=== PATIENT | male | born 1955 | race Caucasian/White ===

== ENCOUNTER 2025-04-06 13:24 | Outpatient (CLI) | payer OTHER, SELFPAY ==
--- OUTSIDE RECORDS SUMMARY | 2025-03-29 08:10 | XMS_ITS | Encounter Summary ---
Author Organization [place] [address] Care Team Providers Care Supervisor Feed Mill Name Role Phone Omar Perez MD Primary Care Provider [phone] Reason for Visit * Reason Comments Hypertension Hyperlipidemia Encounter Details Date Type Department Care Team (Latest Contact Info) Description 03/29/2025 8:10 AM EDT Office Visit [facility] [address] [place] [address] [place] [id number] [place] [address] Hypertension, benign (Primary Dx); Hyperlipidemia, [...] 03/29/2025 cyclobenzaprine (FLEXERIL) 10 mg Oral TabletIndications:Ac koi low back pain without sciatica, unspecified back [...] AM EST Office Visit [facility] [address] [place] [phone] [place] [address] [place] [phone] documented as [...] documented as of this encounter Care Teams Supervisor Feed Mill Relationship Specialty [place] [address] [place] [phone] PCP - General Internal Medicine 07/12/11 documented as of this encounter
--- NOTE | 2025-04-06 13:29 | XR_ITS ---
FINAL REPORT TECHNIQUE: Chest PA & Lateral CLINICAL HISTORY: BNP, SOA COMPARISON: None FINDINGS: 2 views of the chest were performed. The heart size is normal. The mediastinum is within normal limits. There is no acute cardiopulmonary process. There are no pleural effusions. There is no pneumothorax. The bony thorax appears intact. IMPRESSION: No acute cardiopulmonary process. Reviewed, Interpreted and Dictated by Syd Chong MD Transcribed by Pily Sanchez Authenticated and [facility]
[2025-04-06 13:40] LABS: Hematocrit 46.1 % (42.0-52.0); Hemoglobin 15.3 g/dL (14.1-18.0); Immature Granulocytes % 0.3 %; Mean Corpuscular HGB Conc 33.2 g/dL (31.8-35.4); Mean Corpuscular Hemoglobin 30.1 pg (27.0-31.2); Mean Corpuscular Volume 90.7 fl (80-94); Nucleated Red Blood Cells % 0 %; Platelet Count 286 K/mm3 (142-424); Red Blood Count 5.08 M/mm3 (4.60-6.20); Red Cell Distribution Width-SD 44.4 fL; White Blood Count 9.7 K/mm3 (4.8-10.8)
--- OUTSIDE RECORDS SUMMARY | 2025-04-06 13:42 | XMS_ITS | Clinical Summary ---
Author Organization [employer] [facility] Address [address] [place] [address] Phone Care Team Providers Care Senior Physical Therapist Name Role Phone Unavailable Unavailable Conditions or Problems No information available. Medications No information available. Medications Administered No information available. Allergies, Adverse Reactions, Alerts No information available. Results No information available. Plan of Care No information available. Procedures No information available. Vital Signs No information available. Immunizations No information available. Advance Directives No information available.
--- OUTSIDE RECORDS SUMMARY | 2025-04-06 13:43 | XMS_ITS | Clinical Summary ---
Author Organization [facility] ter Care Team Providers Care Pigment Pumper Name Role Phone Provider, Imaging Unavailable Unavailable Conditions or Problems No information available. Medications No information available. Medications Administered No information available. Allergies, Adverse Reactions, Alerts No information available. Results No information available. Plan of Care No information available. Procedures No information available. Vital Signs No information available. Immunizations No information available. Advance Directives No information available.
--- OUTSIDE RECORDS SUMMARY | 2025-04-06 13:44 | XMS_ITS | Clinical Summary ---
Author Organization [facility] Address [address] [place] [address] Phone Care Team Providers Care Manufacturing Operations Manager Name Role Phone Omar Perez MD Primary Care Provider [phone] Allergies No known active allergies Medications omeprazole (PRILOSEC) 20 mg Oral Capsule, Delayed Release(E.C.) 7 Active gabapentin (NEURONTIN) 300 mg Oral Capsule 4 Active lidocaine (XYLOCAINE) 5 % Top OintmentIndication s:Primary osteoarthritis of both knees Apply topically daily. 60 g 2 5 Active atorvastatin (LIPITOR) 80 mg Oral TabletIndications: Hyperlipidemia, unspecified hyperlipidemia type Take 1 Tablet by mouth daily. 90 Tablet 1 5 Active cyclobenzaprine (FLEXERIL) 10 mg Oral TabletIndications: Acute low back pain without sciatica, unspecified back pain laterality Take 1 Tablet by mouth 3 times daily as needed. 60 Tablet 5 5 Active diclofenac (VOLTAREN) 75 mg Oral Tablet, Delayed Release (E.C.)Indications: Osteoarthritis of right knee, unspecified osteoarthritis type Take 1 Tablet by mouth 2 times daily (with meals). 180 Tablet 1 5 Active lisinopriL-hydroch lorothiazide (PRINZIDE;ZESTORET IC) 20-12.5 mg Oral TabletIndications: Hypertension, benign Take 1 Tablet by mouth 2 times daily. 180 Tablet 1 5 Active Active Problems Patient Care Coordination No te Formatting of this note migh t be different from the original. Care gap audit completed by Bre Cuenca RN on 02/01/2024. Problem Noted Date Diagnosed Date Osteoarthritis of right knee 05/21/2022 Assessment & Plan (05/25/2024 3:31 PM EDT): Orders: [place] ARTHROCENTESIS ASPIR&/INJ MAJOR JT/BURSA W/O US methylPREDNISolone acetate (DEPO-Medrol) injection 80 mg diclofenac (VOLTAREN) 75 mg Oral Tablet, Delayed Release (E.C.); Take 1 Tablet by mouth 2 times daily (with meals). Chronic pain disorder 04/09/2020 Meralgia paresthetica 04/09/2020 Displacement of lumbar inter vertebral disc without myelopathy 04/09/2020 Hypertensive heart disease without congestive he art failure 04/09/2020 Spinal stenosis of lumbar region 04/09/2020 Osteoarthritis of left knee 04/09/2020 Tachycardia 04/09/2020 Primary osteoarthritis of both knees 04/19/2019 CKD (chronic kidney disease) stage 3, GFR 30-59 ml/min 11/05/2018 Hyperlipidemia 04/02/2016 Morbid obesity with BMI of 45.0-49.9, adult 01/2015 Hypertension, benign 06/22/2015 Encounters Date Type Department Care Team Description 03/29/2025 8:10 AM EDT Office Visit [facility] POLANCO [address] [address] Omar Perez MD Hypertension, benign (Primary Dx); Hyperlipidemia, unspecified hyperlipidemia type; Acute low back pain without sciatica, unspecified back pain laterality; Osteoarthritis of right knee, unspecified osteoarthritis type 01/25/2025 8:40 AM EDT Office Visit [facility] POLANCO [address] [address] Omar Perez MD Primary osteoarthritis of right knee (Primary Dx); Trochanteric bursitis of right hip; Acute bronchitis, unspecified organism from Last 3 Months Surgical History Surgery Date Site/Laterality Comments ROTATOR CUFF REPAIR TONGUE SURGERY KNEE ARTHROSCOPY left SHOULDER SURGERY Right rotator cuff repair KNEE SURGERY Left scoped TOTAL KNEE ARTHROPLASTY 04/09/2020 Knee/Left LEFT TOTAL KNEE ARTHROPLASTY; Surgeon: Gene Thompson MD; Location: [facility]; Service: Orthopedics Medical devices from this surgery are in the Medical Devices section. Medical History Medical History Date Comments Chronic back pain L 4,L5 Calcaneus fracture, right Hypertension Hyperlipidemia Arthritis Throat cancer (HCC) 1987 Family History Medical History Relation Name Comments Alcohol Abuse Father Substance Abuse Father Cancer Mother Arthritis Sister Anesth Problems Neg Hx Relation Name Status Comments Father Mother Alive Sister Alive Social History Tobacco Use Types Packs/Day Years [...] on file Sexual Orientation Not on file Obstetrics History Last Filed Vital Signs Vital Sign Reading Time Taken Comments Blood Pressure 130/70 03/29/2025 8:16 AM EDT Pulse 75 03/29/2025 8:16 AM EDT Temperature 36.7 C (98.1 F) 03/29/2025 8:16 AM EDT Respiratory Rate 16 09/01/2021 1:13 PM EST Oxygen Saturation 94% 03/29/2025 8:16 AM EDT Inhaled Oxygen Concentration - - Weight 154.2 kg (340 lb) 03/29/2025 8:16 AM EDT Height 177.8 cm (5' 10 ) 01/25/2025 8:51 AM EDT Body Mass Index 48.78 01/25/2025 8:51 AM EDT Plan of Treatment Upcoming Encounters Date Type Department Care Team (Late st Contact Info) Description 09/29/2025 8:00 AM EST Office Visit [facility]ANCO [address] [address] [place] [address] [place] [address] Health Maintenance Due Date Last Done Comments DTaP/TDaP/Td (1 - Tdap) 12/01/1975 Colonoscopy 2001 FIT 2001 Sigmoidoscopy 2001 Virtual Colonography 2001 Pneumococcal Vaccine 50+ (1 of 1 - PCV) 2006 Zoster (1 of 2) 2006 RSV or 60+ (1 - Risk 60-74 years 1-dose series) 2016 AAA Screening 2021 COVID-19 Vaccine (1 - season) 2024 Influenza Vaccine (#1) 2025 8 (Declined), 10/01/2016 (Declined), 06/22/2015 (Declined) Wellness Exam Medicare 09/30/2025 09/29/2024 Cologuard 11/05/2027 11/04/2024, 10/16, 01/23/2021, Additional history exists Colon Cancer Screening 11/05/2027 Hepatitis C Screening Completed 11/02/2017 Hepatitis B Vaccine Aged Out No longe r eligible based on patient's age to complete this topic Meningococcal B Vaccine Aged Out No l onger eligible based on patient's age to complete this topic Goals Goal Patient Goal Type Associated Problems Recent Progress Patient-Stated? Author Blood Pressure < 140/90 Blood Pressure 130/70(2024 8:16 AM EDT) No Amarilys Castaneda CCMA Maintain a healthy diet, exercise regularly and maintain an ideal body weight General No Bre Apodaca RMA Stay Tobacco Free Lifestyle No Bre Apodaca RMA Medical Devices Implanted Type Area Fruit Ii Farmworker Device Identifier Shelf Expiration Date Model / Serial / Lot Femur Tm Cr Persona Standard Porous Left Size 11 - [id number] Implanted:Qty : 1 on 04/09/2020 by Gene Thompson MD at [facility] Left: Knee JESUS:JESUS [id number] 10/14/2029 [id number] / / [id number] Cmpnt Ptlr 10mm 41mm Prm Nxgn Trb Mtl Pe Por Kn - [id number] Implanted:Qty : 1 on 04/09/2020 by Gene Thompson MD at [facility] Left: Knee JESUS:JESUS [id number] 06/16/2024 [id number] / / [id number] Plate Tib Grn [id number] Nxgn 6 C-H Kn Trb Mtl Pe Cr Mnblck - [id number] Implanted:Qty : 1 on 04/09/2020 by Gene Thompson MD at [facility] Left: Knee JESUS:JESUS [id number] 2 06/16/2022 [id number] / / [id number] Procedures Procedure Name Priority Date/Time Associated Diagnosis Comments COLOGUARD Routine 11/04/2024 8:00 AM EDT Screening for colon cancer HCV ANTIBODY SCREEN W/ REFLEX Routine 11/02/2017 9:27 AM EDT Need for hepatitis C screening test from Last 3 Months or Most Recently Relevant to Health Maintenance Results * COLOGUARD (11/04/2024 8:00 AM EDT) COLOGUARD CLINICAL REPORT Negative Negative [facility] Comment: NEGATIVE TEST RESULT. A negative Cologuard result indicates a low likelihood that a colorectal cancer (CRC) or advanced adenoma (adenomatous polyps with more advanced pre-malignant features) is present. The chance that a person with a negative Cologuard test has a colorectal cancer is less than 1 in 1500 (negative predictive value >99.9%) or has an advanced adenoma is less than 5.3% (negative predictive value 94.7%). These data are based on a prospective cross-sectional study of 10,000 individuals at average risk for colorectal cancer who were screened with both Cologuard and colonoscopy. (Augie Wilson al, N Engl J Med 2014;370(14):3774-8689) The normal value (reference range) for this assay is negative. COLOGUARD RE-SCREENING RECOMMENDATION: Periodic colorectal cancer screening is an important part of preventive healthcare for asymptomatic individuals at average risk for colorectal cancer. Following a negative Cologuard result, the [place] Cancer Society and U.S. Multi-Society Task Force screening guidelines recommend a Cologuard re-screening interval of 3 years. References: [place] Cancer Society Guideline for Colorectal Cancer Screening: https://www.cancer.org/cancer/nxplv-bbmpsf-amedap/gnonxbheu-ghhukqdbz-elgjcid/ac s-rec ommendations.html.; Sebastian THORNE, Foster BARRY, Landon MCKEON, Colorectal Cancer Screening: Recommendations for Physicians and Patients from the U.S. Multi-Society Task Force on Colorectal Cancer Screening , Am J Gastroenterology 2017; 112:3986-7266. TEST DESCRIPTION: Composite algorithmic analysis of stool DNA-biomarkers with hemoglobin immunoassay. Quantitative values of individual biomarkers are not reportable and are not associated with individual biomarker result reference ranges. Cologuard is intended for colorectal cancer screening of adults of either sex, 45 years or older, who are at average-risk for colorectal cancer (CRC). Cologuard has been approved for use by the U.S. FDA. The performance of Cologuard was established in a cross sectional study of average-risk adults aged 50-84. Cologuard performance in patients ages 45 to 49 years was estimated by sub-group analysis of near-age groups. Colonoscopies performed for a positive result may find as the most clinically significant lesion: colorectal cancer [4.0%], advanced adenoma (including sessile serrated polyps greater than or equal to 1cm diameter) [20%] or non- advanced adenoma [31%]; or no colorectal neoplasia [45%]. These estimates are derived from a prospective cross-sectional screening study of 10,000 individuals at average risk for colorectal cancer who were screened with both Cologuard and colonoscopy. (Augie Zaragoza et al, N Engl J Med 2014;370(14):1829-8245.) Cologuard may produce a false negative or false positive result (no colorectal cancer or precancerous polyp present at colonoscopy follow up). A negative Cologuard test result does not guarantee the absence of CRC or advanced adenoma (pre-cancer). The current Cologuard screening interval is every 3 years. ([place] Cancer Society and U.S. Multi-Society Task Force). Cologuard performance data in a 10,000 patient pivotal study using colonoscopy as the reference method can be accessed at the following location: www.[employer] Dynamics/results. Additional description of the Cologuard test process, warnings and precautions can be found at www.cologuard.com. Stool 11/04/2024 8:00 AM EDT 11/06/2024 10:22 PM EDT us Omar Perez MD EXACT SCIENCE - ORDERABLES Fi nal Result [employer], [place] [address], [facility] [employer] [address] [place] [address] * HEPATITIS C ANTIBODY - SCREENING (11/02/2017 9:27 AM EDT) [facility] Signature Hep C Ab Negative Negative 11/02/2017 3:46 PM EDT [facility] Blood VENOUS BLOOD / Unknown Venipuncture / Unknown 11/02/2017 9:27 AM EDT 11/02/2017 9:27 AM EDT us Omar Perez MD HEMATOLOGY ORDERABLES Final R esult [facility] [address] [place] [address] from Last 3 Months or Most Recently Relevant to Health [place] [address] Advance Directives For more information, please contact: [phone] * Full Code (Latest Code Status on File) Date Activated Date Inactivated Comments 04/09/2020 7:47 PM 04/10/2020 6:58 PM Care Teams Manufacturing Operations Manager Relationship Specialty [place] [address] [place] [address] PCP - General Internal Medicine 07/12/11
--- OUTSIDE RECORDS SUMMARY | 2025-04-06 13:44 | XMS_ITS | Clinical Summary ---
Author Organization [facility] Address [address] [place] [address] Care Team Providers Care Curtain Supervisor Name Role Phone Luci Chowdhury MD Primary Care Provider Unavailabl e Source Comments This information has been disclosed to you from confidential records protectedfrom disclosure by state law. You shall make no further disclosure of thisinformation without the specific, written, and informed release of theindividual to whom it pertains, or as otherwise permitted by law. A generalauthorization for the release of medical or other information is not sufficientfor the purposes of therelease of HIV test results or diagnoses. [id number] Allergies No known active allergies Medications No known medications Active Problems No known active problems Family History Medical History Relation Comments Cancer Other Relation Status Comments Other Alive Social History Tobacco Use Types Packs/Day Years Used Date Smoking Tobacco: Former Cigarettes Q uit: 06/28/1988 Smokeless Tobacco: Never Alcohol Use Standard Drinks/Week Comments Yes 0 (1 standard drink = 0.6 oz pur e alcohol) 6 bottles per week Sex and Gender Information Value Date Recorded Sex Assigned at Not on file Legal Sex Male 7:24 PM EST Gender Identity Not on file Sexual Orientation Not on file Last Filed Vital Signs Vital Sign Reading Time Taken Comments Blood Pressure 123/74 07/22/2012 11:30 AM EST Pulse 86 07/22/2012 11:30 AM EST Temperature 36.2 C (97.2 F) 07/02/2012 12:43 PM EST Respiratory Rate 14 07/02/2012 1:28 PM EST Oxygen Saturation 98% 07/02/2012 1:28 PM EST Inhaled Oxygen Concentration 98% 07/02/2012 1 :28 PM EST Weight 133.8 kg (295 lb) 07/22/2012 11:30 AM EST Height 185.4 cm (6' 0.99 ) 07/22/2012 11:[address] Body Mass Index 38.93 07/22/2012 11:30 AM EST Plan of Treatment Not on file Insurance [employer] Advance Directives For more information, please contact: [phone] * Full Code (Latest Code Status on File) Date Activated Date Inactivated Comments 07/02/2012 11:53 AM 07/02/2012 3:48 PM Care Teams Curtain Supervisor Relationship Specialty Start Date End Date Luci Chowdhury MD PCP - General 03/26/12
[2025-04-06 13:56] LABS: Hemoglobin A1C 6.5 % (4.0-6.0)
[2025-04-06 14:21] LABS: Alanine Aminotransferase 26 U/L (12-78); Albumin Level 4.4 g/dl (3.5-5.0); Albumin/Globulin Ratio 1.2 (1.1-1.8); Alkaline Phosphatase 108 U/L (38-126); Anion Gap 14.6 mEq/L (5-15); Aspartate Amino Transferase 38 U/L (17-59); Bilirubin,Direct 0.2 mg/dl (0.0-0.4); Bilirubin,Indirect 0.4 mg/dL (0.0-0.9); Bilirubin,Total 0.6 mg/dl (0.2-1.3); Bilirubin,Unconjugated 0.4 mg/dL (0.0-1.1); Blood Urea Nitrogen 16 mg/dl (9-20); Calcium 9.5 mg/dl (8.4-10.2); Carbon Dioxide 28 mmol/L (22.0-30.0); Chloride 102 mmol/L (98-107); Cholesterol 217 mg/dl (140-200); Creatinine,Serum 1.10 mg/dl (0.66-1.25); Estimated Glomerular Filt Rate 67 ml/min (>60); GFR (African American) 81 ML/MIN (>60); Globulin 3.7 g/dL (1.3-3.2); Glucose 84 mg/dl (74-100); HDL Cholesterol 45 mg/dl (40-60); Magnesium 2.2 mg/dl (1.6-2.3); Potassium 4.6 mmoL/L (3.5-5.1); Sodium 140 mmol/L (136-145); Total Protein,Serum 8.1 g/dl (6.3-8.2); Triglycerides 199 mg/dl (30-150)
[2025-04-06 14:32] LABS: NT Pro Brain Natriuretic Pep. 172 pg/mL (0-125)
[2025-04-06 14:38] LABS: Free T4 (Free Thyroxine) 1.22 ng/dl (0.78-2.19)
[2025-04-06 14:53] LABS: Thyroid Stimulating Hormone 1.58 uIU/mL (0.465-4.68)
== END 2025-04-06 23:59 | disposition home or self-care (01) ==
LOC: LAB 13:26
PROVIDERS: Visit Provider Internal Medicine
DX: E66.01 Morbid (severe) obesity due to excess calories (principal); R06.02 Shortness of breath; R73.03 Prediabetes; R60.9 Edema, unspecified; R94.31 Abnormal electrocardiogram [ECG] [EKG]
CPT/HCPCS: 36415; 71046; 80053; 80061; 82248; 83036; 83735; 83880; 84439; 84443; 85025

== ENCOUNTER 2025-04-20 10:54 | Outpatient (CLI) | payer MEDICARE, SELFPAY ==
--- OUTSIDE RECORDS SUMMARY | 2025-03-29 08:10 | XMS_ITS | Encounter Summary ---
Author Organization [place] [address] Care Team Providers Care Asbestos Brake Lining Finisher Name Role Phone Omar Perez MD Primary Care Provider [phone] Reason for Visit * Reason Comments Hypertension Hyperlipidemia Encounter Details Date Type Department Care Team (Latest Contact Info) Description 03/29/2025 8:10 AM EDT Office Visit [facility] [address] [place] [address] [place] [id number] [place] [address] Hypertension, benign (Primary Dx); Hyperlipidemia, unspecified hyperlipidemia type; Acute low back pain without sciatica, unspecified back pain laterality; Osteoarthritis of right knee, unspecified osteoarthritis type Social History Tobacco Use Types Packs/Day Years Used Date Smoking Tobacco: Former Cigarettes 3 8.6 0 03/28/1979 - 11/16/1987 Smokeless Tobacco: Never Tobacco Cessation:Counseling Given: Not Answered Alcohol Use Standard Drinks/Week Comments Yes 8 (1 standard drink = 0.6 oz pur e alcohol) PHQ-2 Answer Date Recorded PHQ-2 Total Score 0 09/29/2024 Sexually Active Control Partners Comments Not Currently Sex and Gender Information Value Date Recorded Sex Assigned at Not on file Legal Sex Male 11:55 PM EDT Gender Identity Not on file Sexual Orientation Not on file documented as of this encounter Last Filed Vital Signs Vital Sign Reading Time Taken Comments Blood Pressure 130/70 03/29/2025 8:16 AM EDT Pulse 75 03/29/2025 8:16 AM EDT Temperature 36.7 C (98.1 F) 03/29/2025 8:16 AM EDT Respiratory Rate - - Oxygen Saturation 94% 03/29/2025 8:16 AM EDT Inhaled Oxygen Concentration - - Weight 154.2 kg (340 lb) 03/29/2025 8:16 AM EDT Height - - Body Mass Index 48.78 01/25/2025 8:51 AM EDT documented in this encounter Functional Status * Is the person deaf or does he/she have serious difficulty hearing? Answer Date of Assessment Author No 09/29/2024 8:39 AM Nazanin Araya CCMA * Is the person blind or does he/she have serious difficulty seeing even when wearing glasses? Answer Date of Assessment Author No 09/29/2024 8:39 AM Nazanin Araya CCMA * Does this person have serious difficulty walking or climbing stairs? Answer Date of Assessment Author No 09/29/2024 8:39 AM Nazanin Araya CCMA * Does this person have difficulty dressing or bathing? Answer Date of Assessment Author No 09/29/2024 8:39 AM Nazanin Araya CCMA * Because of a physical, mental or emotional condition, does this person have difficulty doing errands alone such as visiting a doctor's office or shopping? Answer Date of Assessment Author No 09/29/2024 8:39 AM Nazanin Araya CCMA documented as of this encounter Mental Status * Because of a physical, mental or emotional condition, does this person have serious difficulty concentrating, remembering or making decisions? Answer Entry Date Author No 09/29/2024 8:39 AM Nazanin Araya CCMA documented in this encounter Ordered Prescriptions Prescription Sig Dispense Quantity Refills Last Filled Start Date End Date lisinopriL-hydrochlo rothiazide (PRINZIDE;ZESTORETIC ) 20-12.5 mg Oral TabletIndications:Hy pertension, benign Take 1 Tablet by mouth 2 times daily. 180 Tablet 1 03/29/2025 diclofenac (VOLTAREN) 75 mg Oral Tablet, Delayed Release (E.C.)Indications:Os teoarthritis of right knee, unspecified osteoarthritis type Take 1 Tablet by mouth 2 times daily (with meals). 180 Tablet 1 03/29/2025 cyclobenzaprine (FLEXERIL) 10 mg Oral TabletIndications:Ac walk[place] river low back pain without sciatica, unspecified back pain laterality Take 1 Tablet by mouth 3 times daily as needed. 60 Tablet 5 03/29/2025 atorvastatin (LIPITOR) 80 mg Oral TabletIndications:Hy perlipidemia, unspecified hyperlipidemia type Take 1 Tablet by mouth daily. 90 Tablet 1 03/29/2025 documented in this encounter Progress Notes * Omar Perez MD - 03/29/2025 8:10 AM EDT Vitals: 03/29/25 0816 BP: 130/70 BP Location: Left arm Pulse: 75 Temp: 98.1 ??F (36.7 ??C) TempSrc: Temporal SpO2: 94% Weight: (!) 340 lb (154.2 kg) Body mass index is 48.78 kg/m??. SUBJECTIVE: Chief Complaint Patient presents with ??? Hypertension ??? Hyperlipidemia HPI: Pt is having trouble breathing. Hypertension: Home reporting of hypertension was reviewed at time of visit. Gustavo denies any episodes of dizziness, lightheadedness, presyncope, syncope, headache, or chest pain. Gustavo does not report any new symptoms of possible hypertension sequelae. The patient reports that he is not having significant issuesor side effects of current medications/treatments. Hyperlipidemia: Last Lipid and liver panel has been reviewed. Current cholesterol goals discussed with patient. Thepatient is on a lipid lowering agent. The patient currently is on a statin. No complaints of side effects from medication. The patient is not having issues maintaining compliance with the previously outlined care plan. The patient does not report significant side effects of current medications/treatments. Diet has been reviewed with patient. Review of Systems Constitutional: Negative for chills and fever. HENT: Negative for congestion, rhinorrhea, sore throat and trouble swallowing. Eyes: Negative for discharge and redness. Respiratory: Negative for cough and shortness of breath. Cardiovascular: Negative for chest pain. Gastrointestinal: Negative for constipation, diarrhea, nausea and vomiting. Genitourinary: Negative for difficulty urinating and dysuria. Musculoskeletal: Negative for back pain. Skin: Negative for rash. Neurological: Negative for headaches. Hematological: Does not bruise/bleed easily. Psychiatric/Behavioral: Negative for confusion. OBJECTIVE: Physical Exam Vitals and nursing note reviewed. Constitutional: General: He is not in acute distress. Appearance: He is well-developed. He is not diaphoretic. HENT: Head: Normocephalic and atraumatic. Right Ear: Tympanic membrane, ear canal and external ear normal. Left Ear: Tympanic membrane, ear canal and external ear normal. Nose: Nose normal. Mouth/Throat: Mouth: Mucous membranes are moist. Eyes: Extraocular Movements: Extraocular movements intact. Conjunctiva/sclera: Conjunctivae normal. Pupils: Pupils are equal, round, and reactive to light. Cardiovascular: Rate and Rhythm: Normal rate and regular rhythm. Heart sounds: No murmur heard. Pulmonary: Effort: Pulmonary effort is normal. No respiratory distress. Breath sounds: Normal breath sounds. No wheezing, rhonchi or rales. Musculoskeletal: General: No swelling. Cervical back: Neck supple. Skin: General: Skin is warm and dry. Findings: No rash. Neurological: Mental Status: He is alert and oriented to person, place, and time. Psychiatric: Mood and Affect: Mood normal. Behavior: Behavior normal. Assessment Diagnoses and all orders for this visit: Hypertension, benign - lisinopriL-hydrochlorothiazide (PRINZIDE;ZESTORETIC) 20-12.5 mg Oral Tablet; Take 1 Tablet by mouth 2 times daily. Dispense: 180 Tablet; Refill: 1 Hyperlipidemia, unspecified hyperlipidemia type - atorvastatin (LIPITOR) 80 mg Oral Tablet; Take 1 Tablet by mouth daily. Dispense: 90 Tablet; Refill: 1 Acute low back pain without sciatica, unspecified back pain laterality - cyclobenzaprine (FLEXERIL) 10 mg Oral Tablet; Take 1 Tablet by mouth 3 times daily as needed. Dispense: 60 Tablet; Refill: 5 Osteoarthritis of right knee, unspecified osteoarthritis type - diclofenac (VOLTAREN) 75 mg Oral Tablet, Delayed Release (E.C.); Take 1 Tablet by mouth 2 times daily (with meals). Dispense: 180 Tablet; Refill: 1 documented in this encounter Plan of Treatment Upcoming Encounters Date Type Department Care Team (Abdirizak Contact Info) Description 09/29/2025 8:00 AM EST Office Visit [facility] [address] [place] [phone] [place] [id number] [place] [phone] documented as of this encounter Goals Goal Patient Goal Type Associated Problems Recent Progress Patient-Stated? Author Blood Pressure < 140/90 Blood Pressure 130/70(2024 8:16 AM EDT) Amarilys Staley CCMA Maintain a healthy diet, exercise regularly and maintain an ideal body weight General No Bre Apodaca RMA Stay Tobacco Free Lifestyle No Bre Apodaca RMA documented as of this encounter Visit Diagnoses Diagnosis Hypertension, benign- Primary Essential hypertension, benign Hyperlipidemia, unspecified hyperlipidemia type Acute low back pain without sciatica, unspecified back pain laterality Osteoarthritis of right knee, unspecified osteoarthritis type documented in this encounter Discontinued Medications Medication Sig Discontinue Reason Start Date End Da te cyclobenzaprine (FLEXERIL) 10 mg Oral TabletIndications:Acute low back pain without sciatica, unspecified back pain laterality Take 1 Tablet by mouth 3 times daily as needed. Reorder 09/29/2024 03/29/2025 diclofenac (VOLTAREN) 75 mg Oral Tablet, Delayed Release (E.C.)Indications:Osteoart hritis of right knee, unspecified osteoarthritis type Take 1 Tablet by mouth 2 times daily (with meals). Reorder 09/29/2024 03/29/2025 lisinopriL-hydrochlorothia zide (PRINZIDE;ZESTORETIC) 20-12.5 mg Oral TabletIndications:Hyperten charito, benign Take 1 Tablet by mouth 2 times daily. Reorder 09/29/2024 03/29/2025 atorvastatin (LIPITOR) 80 mg Oral TabletIndications:Hyperlip idemia, unspecified hyperlipidemia type Take 1 Tablet by mouth daily. Reorder 09/30/2024 03/29/2025 documented as of this encounter Additional Health Concerns Assessment Noted Time A fall risk assessment has been complete d for the patient 03/29/2025 8:17 AM EDT documented as of this encounter Care Teams Asbestos Brake Lining Finisher Relationship Specialty [place] [id number] [place] [phone] PCP - General Internal Medicine 07/12/11 documented as of this encounter
--- NOTE | 2025-04-20 | CA_ITS ---
APPROVED REPORT Exam: Pharmacologic Technologist: Irma Crespo Ht: 5 ft 11 in Wt: 342 lbs BSA: 2.65 m2 HR: 59 bpm BP: 123/59 mmHg Medical History Medications: Atorvastatin, Gabapentin, Lisinopril-HCTZ, Oxycodone-Acetaminophen. Stress Test Details Test: Lexiscan Reason for pharmacologic stress test: physical limitation. HR Resting HR: 59 bpm Max Heart Rate (APMHR): 152.010342 bpm Max HR Achieved: 68 bpm Target HR (85% APMHR): 129.512132 bpm % of APMHR: 44.74 Recovery HR: 62 bpm BP Resting BP: 123.0/59.0 mmHg Max BP: 456.0/72.0 mmHg Recovery BP: 136.0/64.0 mmHg ECG Resting ECG: SR No ectopy / RBBB Stress ECG Conclusion Symptoms: None. Arrhythmias/Ectopy: None. ST-T Changes: less than 0.5mm upsloping ST segment changes. Conclusion: Nondiagnostic ECG/Lexiscan. Electronically signed by : Desiree Castro MD 04/21/2025 23:27:25
--- OUTSIDE RECORDS SUMMARY | 2025-04-20 10:58 | XMS_ITS | Clinical Summary ---
Author Organization [facility] Address [address] [place] [address] Phone Care Team Providers Care Inspector Rubber Stamp Die Name Role Phone Unavailable Unavailable Conditions or Problems No information available. Medications No information available. Medications Administered No information available. Allergies, Adverse Reactions, Alerts No information available. Results No information available. Plan of Care No information available. Procedures No information available. Vital Signs No information available. Immunizations No information available. Advance Directives No information available.
--- OUTSIDE RECORDS SUMMARY | 2025-04-20 10:59 | XMS_ITS | Clinical Summary ---
Author Organization [facility] Address [address] [place] [address] Phone Care Team Providers Care Yeast Fermentation Attendant Name Role Phone Omar Perez MD Primary Care Provider [phone] Allergies No known active allergies Medications omeprazole (PRILOSEC) 20 mg Oral Capsule, Delayed Release(E.C.) 08/12/20 17 Active gabapentin (NEURONTIN) 300 mg Oral Capsule 05/17/20 24 Active lidocaine (XYLOCAINE) 5 % Top OintmentIndication s:Primary osteoarthritis of both knees Apply topically daily. 60 g 2 09/29/19 25 Active atorvastatin (LIPITOR) 80 mg Oral TabletIndications: Hyperlipidemia, unspecified hyperlipidemia type Take 1 Tablet by mouth daily. 90 Tablet 1 03/29/20 25 Active cyclobenzaprine (FLEXERIL) 10 mg Oral TabletIndications: Acute low back pain without sciatica, unspecified back pain laterality Take 1 Tablet by mouth 3 times daily as needed. 60 Tablet 5 03/29/20 25 Active diclofenac (VOLTAREN) 75 mg Oral Tablet, Delayed Release (E.C.)Indications: Osteoarthritis of right knee, unspecified osteoarthritis type Take 1 Tablet by mouth 2 times daily (with meals). 180 Tablet 1 03/29/20 25 Active lisinopriL-hydroch lorothiazide (PRINZIDE;ZESTORET IC) 20-12.5 mg Oral TabletIndications: Hypertension, benign Take 1 Tablet by mouth 2 times daily. 180 Tablet 1 03/29/20 Active cyclobenzaprine (FLEXERIL) 10 mg Oral TabletIndications: Acute low back pain without sciatica, unspecified back pain laterality Take 1 Tablet by mouth 3 times daily as needed. 60 Tablet 09/29/19 25 025 Discontin ued(Reord er) diclofenac (VOLTAREN) 75 mg Oral Tablet, Delayed Release (E.C.)Indications: Osteoarthritis of right knee, unspecified osteoarthritis type Take 1 Tablet by mouth 2 times daily (with meals). 180 Tablet 1 09/29/19 025 Discontin ued(Reord er) lisinopriL-hydroch lorothiazide (PRINZIDE;ZESTORET IC) 20-12.5 mg Oral TabletIndications: Hypertension, benign Take 1 Tablet by mouth 2 times daily. 180 Tablet 1 09/29/19 25 025 Discontin ued(Reord er) atorvastatin (LIPITOR) 80 mg Oral TabletIndications: Hyperlipidemia, unspecified hyperlipidemia type Take 1 Tablet by mouth daily. 90 Tablet 1 09/30/19 025 Discontin ued(Reord er) Active Problems Patient Care Coordination No te Formatting of this note migh t be different from the original. Care gap audit completed by Bre Cuenca RN on 02/01/2024. Problem Noted Date Diagnosed Date Osteoarthritis of right knee 05/21/2022 Assessment & Plan (05/25/2024 3:31 PM EDT): Orders: [place] ARTHROCENTESIS ASPIR&/INJ MAJOR JT/BURSA W/O US methylPREDNISolone [...] Morbid obesity with BMI of 45.0-49.9, adult 11/0 01/2015 Hypertension, benign 06/22/2015 Encounters Date Type Department Care Team Description 03/29/2025 8:10 AM EDT Office Visit [facility] POLANCO [address] [place] [phone] Omar Perez MD Hypertension, benign (Primary Dx); Hyperlipidemia, unspecified hyperlipidemia type; Acute low back pain without sciatica, unspecified back pain laterality; Osteoarthritis of right knee, unspecified osteoarthritis type 01/25/2025 8:40 AM EDT Office Visit IRENE Person [place] [address] [place] [phone] Omar Perez MD Primary osteoarthritis of right [...] 8:00 AM EST Office Visit [facility]ENE POLANCO [address] [address] [place] [address] [address] [address] Health Maintenance Due Date Last Done Comments DTaP/TDaP/Td (1 - Tdap) 12/01/1975 Colonoscopy 2001 FIT 2001 Sigmoidoscopy 2001 Virtual Colonography 2001 Pneumococcal Vaccine 50+ (1 of 1 - PCV) 2006 Zoster (1 of 2) 2006 RSV or 60+ (1 - Risk 60-74 years 1-dose series) 2016 AAA Screening 2021 COVID-19 Vaccine ( season) 2025 Influenza Vaccine (#1) 2025 8 (Declined), 10/01/2016 [...] Apodaca RMA Medical Devices Implanted Type Area Potato Spotter Device Identifier Shelf Expiration Date Model / Serial / Lot Femur Tm Cr Persona Standard Porous Left Size 11 - [id number] Implanted:Qty : 1 on 04/09/2020 by Gene Thompson MD at [facility] Left: Knee JESUS:JESUS [id number] 10/14/2029 [id number] / / [id number] Cmpnt Ptlr 10mm 41mm Prm Nxgn Trb Mtl Pe Por Kn - [id number] Implanted:Qty : 1 on 04/09/2020 by Gene Thompson MD at [facility] Left: Knee JESUS:JESUS [id number] 06/16/2024 [id number] / / [id number] Plate Tib Grn [id number] Nxgn 6 C-H Kn Trb Mtl Pe Cr Mnblck - [id number] Implanted:Qty : 1 on 04/09/2020 by Gene Thompson MD at [facility] Left: Knee JESUS:JESUS [id number] 06/16/2022 [id number] / / [id number] Procedures Procedure Name Priority Date/Time Associated Diagnosis Comments COLOGUARD Routine 11/04/2024 8:00 AM EDT Screening for colon cancer HCV ANTIBODY SCREEN W/ REFLEX Routine 11/02/2017 9:27 AM EDT Need for hepatitis C screening test from Last 3 Months or Most Recently Relevant to Health Maintenance Results * COLOGUARD (11/04/2024 8:00 AM EDT) COLOGUARD CLINICAL REPORT Negative Negative [facility] Comment: NEGATIVE TEST RESULT. A negative [...] screened with both Cologuard and colonoscopy. (Augie Tomlinson. et al, N Engl J Med 2014;370(14):4340-8436) The normal value (reference range) for this assay is negative. COLOGUARD RE-SCREENING RECOMMENDATION: Periodic colorectal cancer screening is an important part of preventive healthcare for asymptomatic individuals at average risk for colorectal cancer. Following a negative Cologuard result, the [place] Cancer Society and U.S. Multi-Society Task Force screening guidelines recommend a Cologuard re-screening interval of 3 years. References: [place] Cancer Society Guideline for Colorectal Cancer Screening: https://www.cancer.org/cancer/nolmr-wsxqfr-mzijrg/fizuixpji-xicuspiyr-kermqyl/ac s-rec ommendations.html.; Sebastian THORNE, Foster BARRY, Landon VitalK, Colorectal Cancer Screening: Recommendations for Physicians and Patients from the U.S. Multi-Society Task Force on Colorectal Cancer Screening , Am J Gastroenterology 2017; 112:1790-1622. TEST DESCRIPTION: Composite algorithmic analysis of stool [...] Zaragoza et al, N Engl J Med 2014;370(14):7240-9733.) Cologuard may produce a false negative or false positive result (no colorectal cancer or precancerous polyp present at colonoscopy follow up). A negative Cologuard test result does not guarantee the absence of CRC or advanced adenoma (pre-cancer). The current Cologuard screening interval is every 3 years. ([place] Cancer Society and U.S. Multi-Society Task Force). Cologuard performance data in a 10,000 patient pivotal study using colonoscopy as the reference method can be accessed at the following location: www.Acer/results. Additional description of the Cologuard test process, warnings and precautions can be found at www.cologuard.com. Stool 11/04/2024 8:00 AM EDT 11/06/2024 10:22 PM EDT us Omar Perez MD EXACT SCIENCE - ORDERABLES Fi nal Result Performing Organization Address [facility] Co de Phone Number [employer], [address] [employer] [address] [place] [address] * HEPATITIS C ANTIBODY - SCREENING (11/02/2017 9:27 AM EDT) Hep C Ab Negative Negative 11/02/2017 3:46 PM EDT [facility] Blood VENOUS BLOOD / Unknown Venipuncture / Unknown 11/02/2017 9:27 AM EDT 11/02/2017 9:27 AM EDT us Omar Perez MD HEMATOLOGY ORDERABLES Final R esult Performing Organization Address City/[facility]/ZIP Co [place] [address] from Last 3 Months or Most Recently Relevant to Health Maintenance Insurance Member Subscriber Plan / Payer (Ef fective 2018-Present) Name:Gustavo Pressley Relation to Subscriber:Self Name:Gustavo Pressley Payer ID:[id number] (NAIC) Type:Not on file Address: [id number] [place] [id number] MEDICARE PPO MR MEDICARE PPO MR Advance Directives For more information, please contact: [phone] * Full Code (Latest Code Status on File) Date Activated Date Inactivated Comments 04/09/2020 7:47 PM 04/10/2020 6:58 PM Care Teams Yeast Fermentation Attendant Relationship Specialty [place] [address] [place] [address] PCP - General Internal Medicine 07/12/11
--- OUTSIDE RECORDS SUMMARY | 2025-04-20 10:59 | XMS_ITS | Clinical Summary ---
Author Organization [facility] ter Care Team Providers Care Press Manager Name Role Phone Provider, Imaging Unavailable Unavailable [...]
--- OUTSIDE RECORDS SUMMARY | 2025-04-20 10:59 | XMS_ITS | Clinical Summary ---
Author Organization [facility] Address [address] [place] [id number] Care Team Providers Care Sandwich Board Carrier Name Role Phone Luci Chowdhury MD Primary [...] therelease of HIV test results or diagnoses. [id number] Allergies No known active allergies Medications [...] Plan of Treatment Not on file Insurance [email or web address] ACCESS [place] Advance Directives For more information, please contact: [phone] * Full Code (Latest Code Status on File) Date Activated Date Inactivated Comments 07/02/2012 11:53 AM 07/02/2012 3:48 PM Care Teams Sandwich Board Carrier Relationship Specialty Start Date End Date Luci Chowdhury MD PCP - General 03/26/12
--- NOTE | 2025-04-20 11:15 | CA_ITS ---
APPROVED REPORT EXAM: Comprehensive 2D, Doppler, and color-flow Echocardiogram Blind Aide: Deann Herrera RDCS Ht: 5 ft 11 in Wt: 342lbs BSA: 2.65 BP: 199/93 mmHg Indications: CP TDS M-Mode Dimensions RVDd 2.78 cm (0.9-2.6) LA Diam 4.28 cm (1.9-4.0) LVDd 5.93 cm (3.5-5.7) LVDs 4.19 cm (3.5-5.7) IVSd 1.18 cm (0.6-1.1) PWd 1.13 cm (0.6-1.1) EF (Teich) 55.40% FS 29.30% EDV (Teich) 175.20 mL ESV (Teich) 78.10 mL LV Diastology E Decel Time 160 (160-240 msec) E/A Ratio 1.4 Aortic Valve TOSHA Index 0.37 cm2/m2 AoV Peak Dante. 228.0 (50-130 cm/s) AO Peak GR. 20.90 mmHg AO Mean GR. 15.00 (<5 mmHg) AO VTI 56.9 (18-25 cm) TOSHA (VTI) 1.00 (2.5-4.5 cm2) Mitral Valve MV E Max Dante. 91.0 (40-130 cm/s) MV A Velocity 64.0 (40-130 cm/s) E/A Ratio 1.41 MV PHT 47.0 ms Tricuspid Valve TR P. Velocity 222.00 cm/s RAP Estimate 10.00 mmHg RVSP 29.70 mmHg Left Ventricle The left ventricle is normal size. Left ventricular systolic function is normal. The left ventricular ejection fraction is within the normal range. There is increased left ventricular wall thickness. There is normal LV segmental wall motion. The left ventricular diastolic function is normal. LVEF is 55%. Right Ventricle The right ventricle is mildly dilated. The right ventricular systolic function is mildly reduced. Atria The left atrium is mildly dilated. The right atrium is mildly dilated. The interatrial septum is not well visualized. Aortic Valve The aortic valve is mildly thickened. Mild aortic stenosis is present. TOSHA by continuity equation is 1.6 cm2. Peak velocity 2.2 m/s. Mean AV gradient is 15 mmHg. Max AV gradient is 22 mmHg. Trace aortic regurgitation is present. Mitral Valve The mitral valve is normal in structure. No evidence of mitral valve stenosis. Trace mitral regurgitation is present. Tricuspid Valve The tricuspid valve leaflets are thin and pliable. Trace tricuspid regurgitation. There is insufficient TR jet to estimate RVSP. Pulmonic Valve The pulmonary valve is grossly normal in structure. Trace pulmonic valve regurgitation is present. Great Vessels The aortic root is normal in size. IVC is normal in size and collapses >50% with inspiration. Pericardium There is no pericardial effusion. Other Information Study Quality: Technically Difficult Conclusion Technically difficult study. Normal LV systolic function. Mild RV dilation with mild reduction in RV function. Mild biatrial dilation. Mild (TOSHA by continuity equation is 1.6 cm2. Peak velocity 2.2 m/s. Mean AV gradient is 15 mmHg. Max AV gradient is 22 mmHg). Electronically signed by : Desiree Castro MD 04/21/2025 23:06:45
--- NOTE | 2025-04-20 11:26 | XR_ITS ---
FINAL REPORT TECHNIQUE: Chest PA & Lateral CLINICAL HISTORY: dyspnea COMPARISON: 04/06/2025 FINDINGS: 2 views of the chest were performed. The heart size is at the upper limits of normal in size. The mediastinum is within normal limits. There is no acute cardiopulmonary process. There are no pleural effusions. Mild chronic changes are noted in the lung bases. There is no pneumothorax. The bony thorax appears intact. IMPRESSION: No acute cardiopulmonary process. Reviewed, Interpreted and Dictated by Syd Chong MD Transcribed by Pily Sanchez Authenticated and [facility]
--- NOTE | 2025-04-20 12:00 | NM_ITS ---
APPROVED REPORT Exam: Nuclear Stress Test Indication: soa..palpitations..fatigue Patient Location: Outpatient Stress Tech: Ina Pool NM Tech:Pina GilKIM RT(R)(N) Ht: 5 ft 11 in Wt: 340 lbs BP: 123/59 mmHg BSA: 2.64 m2 TID: 1.08 BMI: 47.4 History: soa..palpitations..fatigue Procedure: Patient received 0.4 mg of intravenous Lexiscan, resting heart rate 60 bpm, resting blood pressure 123/59 mmHg, with Lexiscan maximum heart rate achieved was 69 bpm which is 85 % of the maximum predicted heart rate and blood pressure was 145/72 mmHg. With Lexiscan, patient denied any complaint of chest pain. The patient was not able to lay on abdomen for prone images. Cardiac Stress and Resting SPECT Images: Cardiac Stress and Resting SPECT images were obtained using technetium 99m Myoview 32.8 mCi stress and 10.31 mCi at rest. Technically difficult study. Radiotracer uptake in stress imaging is not adequate. The LV apex is not well-visualized and stress imaging. This affects the diagnostic interpretation of the study findings. Resting imaging demonstrates no evidence of perfusion defects. Stress imaging not adequate to evaluate for the presence of reversible defects or presence/absence of ischemia. Gated imaging is not performed in this study in the setting of technically difficult imaging. Conclusion: Technically difficult study. Radiotracer uptake in stress imaging is not adequate. The LV apex is not well-visualized and stress imaging. This affects the diagnostic interpretation of the study findings. Resting imaging demonstrates no evidence of perfusion defects. Stress imaging not adequate to evaluate for the presence of reversible defects or presence/absence of ischemia. Gated imaging is not performed in this study in the setting of technically difficult imaging. In the setting of technically difficult and non-diagnostic study, further evaluation with alternative modalities for ischemia is suggested, if clinically feasible and indicated. Electronically signed by : Desiree Castro MD 04/21/2025 23:21:10
[2025-04-20] MEDS: ISOTOPE MYOVIEW (PER STUDY) 1 DOSE IV (13:07)
[2025-04-20] MEDS: SODIUM CHLORIDE 0.9% 10ML SYR (RAD ONLY) 10 ML IV ×2 (13:07)
[2025-04-20 14:00] VITALS: BP 123/59; PULSE 59; RESP 16
== END 2025-04-20 23:59 | disposition home or self-care (01) ==
LOC: RT 10:54
PROVIDERS: PCP Internal Medicine; Visit Provider Internal Medicine
DX: I35.0 Nonrheumatic aortic (valve) stenosis (principal); I11.9 Hypertensive heart disease without heart failure; I27.20 Pulmonary hypertension, unspecified; I20.9 Angina pectoris, unspecified; E66.01 Morbid (severe) obesity due to excess calories; I45.10 Unspecified right bundle-branch block; R61 Generalized hyperhidrosis; R60.9 Edema, unspecified; R94.31 Abnormal electrocardiogram [ECG] [EKG]; R94.39 Abnormal result of other cardiovascular function study; R40.0 Somnolence; R06.83 Snoring; R73.9 Hyperglycemia, unspecified; Z87.891 Personal history of nicotine dependence
CPT/HCPCS: 71046; 78452; 93017; 93018; 93306; A9502; J2785

== ENCOUNTER 2025-07-07 07:27 | Day surgery (SDC) | payer MEDICARE, SELFPAY ==
[2025-07-07] VITALS (14 sets, daily range): BP systolic 137–176; BP diastolic 54–123; PULSE 61–70; RESP 18–20; O2SAT 91–99; BMI 47.8
--- NOTE | 2025-07-07 07:06 | IR_ITS ---
APPROVED REPORT Patient Location: Outpatient [facility] Airspace Control Officer: Ashish Mahmood, RT (R) PROCEDURES Left heart catheterization Left ventriculogram Selective coronary angiogram Intravascular ultrasound to the proximal dominant right coronary Drug-eluting stent deployment to the proximal dominant right coronary Drug-eluting stent deployment to the proximal and mid LAD Informed consent was obtained prior to the procedure. COMPLICATIONS NONE Estimated Blood Loss: LESS THAN 10 ML TECHNIQUE One percent lidocaine used to anesthetize the right anterior aspect of the wrist. The right radial artery was accessed via the Seldinger technique. A 6 [place] sheath was placed in the right radial artery. 2.5 mg of Verapamil, 800 mcg of nitroglycerin, 1mg Lidocaine and 5000 U Heparin were given through the arterial sheath. The JL3 catheter was also used to perform left heart catheterization, left ventriculogram and selective coronary angiogram. At the end the diagnostic angiogram therapeutic Was administered given a therapeutic ACT and the guide catheter was placed in the right coronary artery followed by Choice PT extra-support wire. Intravascular ultrasound probe was advanced which demonstrated heavy greater than 80% plaque burden in the proximal dominant right coronary artery with significant remodeling. Because of this a 4 mm x 26 mm [place] frontier stent was placed in the proximal right coronary artery at 22 finn reducing the heavy plaque burden to 0%. Intravascular ultrasound probe was readvanced which demonstrated good proximal sizing and apposition. Following this the guide catheter was placed in left main artery followed by Choice PT extra-support wire placed down the LAD. A 3.5 x 38 mm [facility] frontier stent was placed in the mid LAD at 20 finn reducing the stenosis following this an additional 4 mm x 26 mm [facility] frontier stent was deployed at 20 finn in the proximal LAD overlapping the 3.5 mm stent. An additional 3.75 x 15 mm noncompliant balloon was deployed at 22 finn in the mid LAD in order to post dilate. Excellent angiographic results were obtained with KEITH-3 flow being present before and after the procedure. At the end the procedure the apparatus was removed the sheath was removed and hemostasis was achieved using TR banding patient was transferred to the postop already in stable condition ANGIOGRAPHIC RESULTS The left main artery Has distal eccentric 20 to 30% stenosis The left anterior descending artery Has complex opacified soft plaque creating at least a 90% stenosis followed by 70% concentric mid vessel calcified stenosis. This gives rise to a small to medium sized first diagonal artery and a large second diagonal artery both of which are widely patent The circumflex artery Nondominant and has proximal 40% stenosis The right coronary artery Large and dominant with angiographic ambiguity in the proximal segment with a suggestion of soft hazy plaque. This proved to have a greater than 80% plaque burden. There is additional 30% mid vessel distal stenosis The WOODS ventriculogram reveals Preserved at 55% The left ventricular end-diastolic pressure Critically elevated at 40 mmHg IMPRESSION Severe two-vessel coronary artery disease as described above Successful stenting of the proximal dominant right coronary severe disease reduced to 0% with 1 drug-eluting stent Successful stenting of the proximal to mid LAD severe disease reduced to 0% with 2 contiguous drug-eluting stents Preserved ejection fraction Critically elevated LVEDP PLAN 1. Effient and aspirin 2. LDL less than 55 to be achieved with high intensity statin 3. Avoidance of tobacco products 4. Risk factor modification 5. Cardiac rehabilitation 6. Will start patient on Lasix 80 mg a day as well as spironolactone 50 mg a day in order to treat severely elevated LVEDP 7. Recommend sleep study 8. Based on the severity critically elevated LVEDP and patient's profound symptoms he may be a candidate for Cordella device in the future Electronically signed by : Luis Pastor MD 07/07/2025 14:22:42
[2025-07-07 08:10] LABS: Hematocrit 42.1 % (42.0-52.0); Hemoglobin 13.5 g/dL (14.1-18.0); Immature Granulocytes % 0.5 %; Mean Corpuscular HGB Conc 32.1 g/dL (31.8-35.4); Mean Corpuscular Hemoglobin 29.8 pg (27.0-31.2); Mean Corpuscular Volume 92.9 fl (80-94); Nucleated Red Blood Cells % 0 %; Platelet Count 280 K/mm3 (142-424); Red Blood Count 4.53 M/mm3 (4.60-6.20); Red Cell Distribution Width-SD 45.4 fL; White Blood Count 11.1 K/mm3 (4.8-10.8)
[2025-07-07] MEDS: LIDOCAINE 1% 10ML MDV 10 ML IJ (08:12)
[2025-07-07] MEDS: NITROGLYCERIN 800MCG/8ML SYR (CATH LAB) 800 MCG IA (08:12)
[2025-07-07] MEDS: HEPARIN 1,000 UNITS/500ML NS (CATH LAB) 3000 UNIT IV (08:12)
[2025-07-07] MEDS: 0.9 % SODIUM CHLORIDE 500 ML 25 ML IV (08:12)
[2025-07-07 08:13] LABS: Anion Gap 8.9 mEq/L (5-15); Blood Urea Nitrogen 26 mg/dl (9-20); Calcium 9.1 mg/dl (8.4-10.2); Carbon Dioxide 28 mmol/L (22.0-30.0); Chloride 103 mmol/L (98-107); Creatinine Clearance Estimated 68 mL/min (50-200); Creatinine,Serum 1.10 mg/dl (0.66-1.25); Estimated Glomerular Filt Rate 67 ml/min (>60); GFR (African American) 81 ML/MIN (>60); Glucose 122 mg/dl (74-100); Potassium 3.9 mmoL/L (3.5-5.1); Sodium 136 mmol/L (136-145)
[2025-07-07] MEDS: VERAPAMIL 2.5MG/ML 2ML VIAL 2.5 MG IV (08:13)
[2025-07-07] MEDS: HEPARIN 1,000 UNITS/ML 10ML VIAL (CATH LAB) 5000 UNIT IV ×3 (08:13→09:27)
[2025-07-07] MEDS: HYDRALAZINE 20MG/ML VIAL 20 MG IV (08:59)
[2025-07-07] MEDS: MIDAZOLAM HCL 1MG/ML 5ML VIAL 1 MG IV (09:07)
[2025-07-07] MEDS: FENTANYL 100MCG/2ML VIAL 50 MCG IV (09:08)
[2025-07-07] MEDS: PRASUGREL 10MG TAB 60 MG PO (09:14)
[2025-07-07] MEDS: FUROSEMIDE 40MG/4ML VIAL 80 MG IV (09:33)
[2025-07-07] MEDS: IOPAMIDOL-370 (76%);100ML BOTTLE 220 ML IV (14:16)
[2025-07-07 14:18] LABS: CATHL Activated Clotting Time 287 SEC (74-125)
== END 2025-07-07 13:30 | disposition home or self-care (01) ==
PROVIDERS: PCP Internal Medicine; Visit Provider Internal Medicine
PROC: 4A023N7 Measurement of Cardiac Sampling and Pressure, Left Heart, Percutaneous Approach (ICD-10-PCS; CPT 93452; principal; 2025-07-07 07:15)
DX: I25.118 Atherosclerotic heart disease of native coronary artery with other forms of angina pectoris (principal); R94.31 Abnormal electrocardiogram [ECG] [EKG]; R06.09 Other forms of dyspnea; I10 Essential (primary) hypertension; I27.20 Pulmonary hypertension, unspecified; E66.01 Morbid (severe) obesity due to excess calories; Z68.42 Body mass index [BMI] 45.0-49.9, adult; Z87.891 Personal history of nicotine dependence; I45.10 Unspecified right bundle-branch block; Z79.02 Long term (current) use of antithrombotics/antiplatelets; Z79.82 Long term (current) use of aspirin; Z79.899 Other long term (current) drug therapy
CPT/HCPCS: 80048; 85025; 85347; 92928; 93458; 99152; 99153; C1725; C1760; C1769; C1874; C1887; C9600; J0360; J1200; J1644; J1938; J3010; J7040; Q9967

== ENCOUNTER 2025-07-12 10:47 | Outpatient (CLI) | payer MEDICARE, SELFPAY ==
--- OUTSIDE RECORDS SUMMARY | 2025-07-03 07:45 | XMS_ITS | Encounter Summary ---
Author Organization [facility] Address [address] [place] [address] Care Team Providers Care Windows Security Analyst Name Role Phone Omar Perez MD Primary Care Provider Reason for Visit * Reason Comments Pain Injury Encounter Details Date Type Department Care Team (Late st Contact Info) Description 07/03/2025 7:45 AM EST Office Visit [facility] [address] [place] [address] Tom Coburn PA [address] [facility] [address] [place] [address] Primary osteoarthritis of left ankle (Primary Dx) Social History Tobacco Use Types Packs/Day Years Used Date Smoking Tobacco: Former Cigarettes 3 8.6 0 03/28/1979 - 11/16/1987 Smokeless Tobacco: Never Alcohol Use Standard Drinks/Week Comments Yes 8 [...] on file documented as of this encounter Functional Status * Is the person deaf or does he/she have serious difficulty hearing? Answer Date of Assessment Author No 09/29/2024 8:39 AM EST Nazanin Johnson CCMA * Is the person blind or [...] Author No 09/29/2024 8:39 AM Nazanin Araya CCMCharlotte * Because of a physical, mental or [...] Refills Last Filled Start Date End Date methylPREDNISolone (MEDROL DOSPACK) 4 mg Oral Tablets, Dose PackIndications:Lili kym osteoarthritis of left ankle follow package directions 21 Tablet 07/03/2025 documented in this encounter Progress Notes * Tom Coburn PA - 07/03/2025 7:45 AM EST Images from the original note were not included. 07/03/2025 Subjective: Patient ID: Gustavo Pressley is a 69 y.o. patient [id number] CHIEF COMPLAINT: Left Ankle Pain HISTORY: The patient comes into the office alone today for evaluation and treatment of their left ankle. The patient was last seen at the walk-in clinic on 05/03/2025 for left ankle arthritis. He was placed on a prescription of diclofenac and referred to the office for further evaluation and treatment. He comes in today stating that his ankle continues to bother him. He endorses pain with standingwalking for long periods of time. Notes occasional stiffness and soreness and occasional clicking and popping. He denies any feelings of instability. He denies any numbness or tingling. ROS Relevant point review of systems dated 07/03/2025 ([facility]) was reviewed and all pertinent positives were reviewed and are available in the patient's chart. There were no vitals filed for this visit. Objective: PHYSICAL EXAMINATION: Exam of the right ankle reveals normal range of motion, good strength, no instability, and no pain. Exam of the left ankle reveals minimal swelling. Tenderness to palpation is noted over the ATFL and medial malleolus and anterior talocrural joint. Range of motion: 0-15 degrees dorsiflexion 0-30 degrees plantarflexion Strength testin+/5 with resisted dorsiflexion 4+/5 with resisted plantarflexion Special Tests: No laxity with Anterior Drawer Test Mild pain with Talar Tilt Test Negative External Rotation Test Negative Gonzalez's Test Skin is intact. Compartments are soft. Negative Marcelo's Sign. Distally, the patient is neurovascularly intact. Imaging: IMAGING STUDIES: Previous x-rays taken of the left ankle on 05/03/2025 show mild to moderate degenerative changes with an intact mortise joint and no evidence of fractures. Assessment And Plan IMPRESSION: Left Ankle osteoarthritis PLAN: The results of the x-rays and the diagnosis were discussed with the patient and/or family. Conservative treatment options were discussed. At this time, we will start the patient on a Medrol Dosepak for pain and inflammation. He will ice his ankle and wear supportive shoe wear. He will follow-up with Dr. Mcintosh in 2 weeks for reevaluation and treatment and possible cortisone injection if needed. All questions were answered. The patient and/or family understand and agree with the plan. DME Summary No orders found for display ALLERGIES Allergies[1] PAST MEDICAL HISTORY Past Medical History[2] FAMILY HISTORY Family History[3] SOCIAL HISTORY Social History[4] SURGICAL HISTORY Surgical History[5] CURRENT MEDICATIONS Outpatient meds: Current Medications[6] Hussein Coburn PA-C Physician Spike Driver to Rafa Veliz MD Knee, Shoulder, Sports Medicine & Trauma Orthopaedic Surgery [phone] [employer] Parts of this note may have been created by a chart review, combined by taking my own patient history. The patient was physically seen and examined by myself, including a personal review of images, tests, and formation of the impression and plan. In addition, this note may been dictated utilizing voice recognition software. Unfortunately, this leads to occasional typographical errors. I apologizein advance if the situation occurs. If questions occur, please do not hesitate to call our office. The patient was advised to call with any issues or concerns in the future. [1] No Known Allergies [2] Past Medical History: Diagnosis Date Arthritis Calcaneus fracture, right Chronic back pain L 4,L5 Hyperlipidemia Hypertension Throat cancer (HCC) 1987 [3] Family History Problem Relation Age of Onset Cancer Mother Substance Abuse Father Alcohol Abuse Father Arthritis Sister Anesth Problems Neg Hx [4] Social History Socioeconomic History Marital status: Tobacco Use Smoking status: Former Current packs/day: 0.00 Average packs/day: 3.0 packs/day for 8.6 years (25.9 ttl pk-yrs) Types: Cigarettes Start date: 03/28/1979 Quit date: 11/16/1987 Years since quittin.6 Smokeless tobacco: Never Vaping Use Vaping status: Never Used Substance and Sexual Activity Alcohol use: Yes Alcohol/week: 4.8 oz Types: 8 Cans of beer per week Drug use: No Sexual activity: Not Currently [5] Past Surgical History: Procedure Laterality Date KNEE ARTHROSCOPY left KNEE SURGERY Left scoped ROTATOR CUFF REPAIR SHOULDER SURGERY Right rotator cuff repair TONGUE SURGERY TOTAL KNEE ARTHROPLASTY Left 04/09/2020 LEFT TOTAL KNEE ARTHROPLASTY; Surgeon: Gene Thompson MD; Location: [facility]; Service: Orthopedics [6] Current Outpatient Medications: atorvastatin (LIPITOR) 80 mg Oral Tablet, Take 1 Tablet by mouth daily., Disp: 90 Tablet, Rfl: 1 cyclobenzaprine (FLEXERIL) 10 mg Oral Tablet, Take 1 Tablet by mouth 3 times daily as needed., Disp: 60 Tablet, Rfl: 5 diclofenac (VOLTAREN) 75 mg Oral Tablet, Delayed Release (E.C.), Take 1 Tablet by mouth 2 times daily (with meals)., Disp: 180 Tablet, Rfl: 1 gabapentin (NEURONTIN) 300 mg Oral Capsule, , Disp: , Rfl: lidocaine (XYLOCAINE) 5 % Top Ointment, Apply topically daily., Disp: 60 g, Rfl: 2 lisinopriL-hydrochlorothiazide (PRINZIDE;ZESTORETIC) 20-12.5 mg Oral Tablet, Take 1 Tablet by mouth2 times daily., Disp: 180 Tablet, Rfl: 1 methylPREDNISolone (MEDROL DOSPACK) 4 mg Oral Tablets, Dose Pack, follow package directions, Disp: 21 Tablet, Rfl: 0 omeprazole (PRILOSEC) 20 mg Oral Capsule, Delayed Release(E.C.), , Disp: , Rfl: documented in this encounter Plan of Treatment Upcoming Encounters Date Type Department Care Team (Late st Contact Info) Description 07/27/2025 10:45 AM EST Office Visit [facility] [address] [address] Tom Mcintosh MD [address] [address] 09/29/2025 8:00 AM EST Office Visit [facility] [address] [place] [address] [place] [address] [place] [address] documented as of this encounter Goals [...] as of this encounter Visit Diagnoses Diagnosis Primary osteoarthritis of left ankle- Primary documented in this encounter Additional Health Concerns Assessment Noted Time A fall risk assessment has been complete d for the patient 03/29/2025 8:17 AM EDT documented as of this encounter Care Teams Windows Security Analyst Relationship Specialty [place] [address] [place] [id number] PCP - General Internal Medicine 07/12/11 documented as of this encounter
--- OUTSIDE RECORDS SUMMARY | 2025-07-12 10:50 | XMS_ITS | Clinical Summary ---
Author Organization [facility] Address [address] [place] [address] Phone Care Team Providers Care Installation And Repair Technician Name Role Phone Unavailable Unavailable Conditions or Problems No information available. Medications No information available. Medications Administered No information available. Allergies, Adverse Reactions, Alerts No information available. Results No information available. Plan of Care No information available. Procedures No information available. Vital Signs No information available. Immunizations No information available. Advance Directives No information available.
--- OUTSIDE RECORDS SUMMARY | 2025-07-12 10:51 | XMS_ITS | Clinical Summary ---
Author Organization [facility] Address [address] [place] [address] Phone Care Team Providers Care Director Investor Relations Name Role Phone Omar Perez MD Primary Care Provider [phone] Allergies No known active allergies Medications omeprazole [...] times daily. 180 Tablet 1 5 Active methylPREDNISolone (MEDROL DOSPACK) 4 mg Oral Tablets, Dose PackIndications:Pr imary osteoarthritis of left ankle follow package directions 21 Tablet 5 Active Active Problems Patient Care Coordination No te Formatting of this note migh t be different from the original. Care gap audit completed by Bre Cuenca RN on 02/01/2024. Problem Noted Date Diagnosed Date Osteoarthritis of right knee 05/21/2022 Assessment & Plan (05/25/2024 3:31 PM EDT): Orders: OR ARTHROCENTESIS ASPIR&/INJ MAJOR JT/BURSA W/O US methylPREDNISolone [...] Encounters Date Type Department Care Team Description 07/03/2025 7:45 AM EST Office Visit [address] [address] Tom Coburn PA Primary osteoarthritis of left ankle (Primary Dx) 05/03/2025 4:00 PM EDT Ancillary Procedure [address] [address] Jameson Dash APRN Left foot pain 05/03/2025 3:45 PM EDT Office Visit [facility] [address] [address] Jameson Dash APRN Primary osteoarthritis of left foot (Primary Dx); Left foot pain from Last 3 Months Surgical History Surgery [...] Description 07/27/2025 10:45 AM EST [facility] [address] [place], [place] [id number] Tom Mcintosh MD [address] [place], [place] [id number] 09/29/2025 8:00 AM EST Office [facility] [address] [phone] [place] [address] [place] [phone] Health Maintenance Due Date Last Done Comments DTaP/TDaP/Td (1 - Tdap) 12/01/1975 Colonoscopy 2001 FIT 2001 Sigmoidoscopy 2001 Virtual Colonography 2001 Pneumococcal Vaccine 50+ (1 of 1 - PCV) 2006 RSV or 60+ (1 - Risk 50-74 years 1-dose series) 2006 Zoster (1 of 2) 2006 AAA Screening 2021 COVID-19 Vaccine ( - 2024- season) 2025 Influenza Vaccine (#1) 2025 8 [...] [employer] Implanted Type Area Flare Stitcher Device Identifier Shelf Expiration Date Model / Serial / Lot Femur Tm Cr Persona Standard Porous Left Size 11 - [id number] Implanted:Qty : 1 on 04/09/2020 by Gene Thompson MD at [facility] Left: Knee JESUS:JESUS [id number] 1 10/14/2029 [id number] / / [id number] Cmpnt Ptlr 10mm 41mm Prm Nxgn Trb Mtl Pe Por Kn - [id number] Implanted:Qty : 1 on 04/09/2020 by Gene Thompson MD at [facility] Left: Knee JESUS:JESUS [id number] 1 06/16/2024 [id number] / / [id number] Plate Tib Grn [id number] Nxgn 6 C-H Kn Trb Mtl Pe Cr Mnblck - [id number] Implanted:Qty : 1 on 04/09/2020 by Gene Thompson MD at [facility] Left: Knee JESUS:JESUS [id number] 2 06/16/2022 [id number] / / [id number] Procedures Procedure Name Priority Date/Time Associated Diagnosis Comments XR ANKLE LEFT AP LATERAL AND OBLIQUE INCLUDING STANDING Routine 05/03/2025 4:13 PM EDT Left foot pain COLOGUARD Routine 11/04/2024 8:00 AM EDT Screening for colon cancer HCV ANTIBODY SCREEN W/ REFLEX Routine 11/02/2017 9:27 AM EDT Need for hepatitis C screening test from Last 3 Months or Most Recently Relevant to Health Maintenance Results * XR ANKLE LEFT AP LATERAL AND OBLIQUE INCLUDING STANDING (05/03/2025 4:13 PM EDT) Narrative ORTHOCINCY - 05/03/2025 4:13 PM EDT Please see physician's note from office encounter for x-ray imaging result us Jameson Dash APRN IMG DIAGNOSTIC IMAGING ORDERABL ES Final Result ORTHOCINCY * COLOGUARD (11/04/2024 8:00 AM EDT) COLOGUARD CLINICAL REPORT Negative Negative [facility] Comment: NEGATIVE TEST RESULT. A negative [...] (Augie Wilson al, N Engl J Med 2014;370(14):8552-7846) The normal value (reference range) for this assay is negative. COLOGUARD RE-SCREENING RECOMMENDATION: Periodic colorectal cancer screening is an important part of preventive healthcare for asymptomatic individuals at average risk for colorectal cancer. Following a negative Cologuard result, the [place] [employer] and U.S. Multi-Society Task Force screening guidelines recommend a Cologuard re-screening interval of 3 years. References: [place] [employer] Guideline for Colorectal Cancer Screening: https://www.cancer.org/cancer/oxvyf-ajffcv-dqgvtj/uhaqnldgk-vfbcawyvz-ysgrluy/ac s-rec ommendations.html.; Sebastian DK, Foster CR, Landon VitalK, Colorectal Cancer Screening: Recommendations for Physicians and Patients from the U.S. Multi-Society Task Force on Colorectal Cancer Screening , Am J Gastroenterology 2017; 112:3876-3868. TEST DESCRIPTION: Composite algorithmic analysis of stool [...] (Augie Wilson al, N Engl J Med 2014;370(14):1815-3526.) Cologuard may produce a false negative or false positive result (no colorectal cancer or precancerous polyp present at colonoscopy follow up). A negative Cologuard test result does not guarantee the absence of CRC or advanced adenoma (pre-cancer). The current Cologuard screening interval is every 3 years. ([place] [employer] and U.S. Multi-Society Task Force). Cologuard performance data in a 10,000 patient pivotal study using colonoscopy as the reference method can be accessed at the following location: www.[employer]/results. Additional description of the Cologuard test process, warnings and precautions can be found at www.cologuard.com. Stool 11/04/2024 8:00 AM EDT 11/06/2024 10:22 PM EDT Omar Perez MD EXACT SCIENCE - ORDERABLES Fi nal Result [employer] [address] [place] [address], [facility] [employer] [address] [place] [address] * HEPATITIS C ANTIBODY - SCREENING (11/02/2017 9:27 AM EDT) Hep C Ab Negative Negative 11/02/2017 3:46 PM EDT [facility] Blood VENOUS BLOOD / Unknown Venipuncture / Unknown 11/02/2017 9:27 AM EDT 11/02/2017 9:27 AM EDT us Omar Perez MD HEMATOLOGY ORDERABLES Final R esult [place] [address] from Last 3 Months or Most Recently Relevant to Health Maintenance Insurance [place] [id number] [place] [id number] [employer] MEDICARE PPO [place] [id number] Advance Directives For more information, please contact: [phone] * Full Code (Latest Code Status on File) Date Activated Date Inactivated Comments 04/09/2020 7:47 PM 04/10/2020 6:58 PM Care Teams Director Investor Relations Relationship Specialty [place] [address] [place] [address] PCP - General Internal Medicine 07/12/11
--- OUTSIDE RECORDS SUMMARY | 2025-07-12 10:53 | XMS_ITS | Clinical Summary ---
Author Organization [facility] Address [address] [place] [address] Care Team Providers Care Discharge Planner Name Role Phone Luci Chowdhury MD Primary [...] therelease of HIV test results or diagnoses. [id number] Allergies No known active allergies Medications [...] Plan of Treatment Not on file Insurance [employer] Advance Directives For more information, please contact: [phone] * Full Code (Latest Code Status on File) Date Activated Date Inactivated Comments 07/02/2012 11:53 AM 07/02/2012 3:48 PM Care Teams Discharge Planner Relationship Specialty Start Date End Date Luci Chowdhury MD PCP - General 03/26/12
[2025-07-12 11:39] LABS: Hematocrit 45.0 % (42.0-52.0); Hemoglobin 14.2 g/dL (14.1-18.0); Immature Granulocytes % 0.5 %; Mean Corpuscular HGB Conc 31.6 g/dL (31.8-35.4); Mean Corpuscular Hemoglobin 29.8 pg (27.0-31.2); Mean Corpuscular Volume 94.3 fl (80-94); Nucleated Red Blood Cells % 0 %; Platelet Count 303 K/mm3 (142-424); Red Blood Count 4.77 M/mm3 (4.60-6.20); Red Cell Distribution Width-SD 45.6 fL; White Blood Count 11.3 K/mm3 (4.8-10.8)
[2025-07-12 12:25] LABS: Alanine Aminotransferase 32 U/L (12-78); Albumin Level 4.0 g/dl (3.5-5.0); Alkaline Phosphatase 105 U/L (38-126); Anion Gap 10.0 mEq/L (5-15); Aspartate Amino Transferase 28 U/L (17-59); Bilirubin,Direct 0.2 mg/dl (0.0-0.4); Bilirubin,Indirect 0.5 mg/dL (0.0-0.9); Bilirubin,Total 0.7 mg/dl (0.2-1.3); Bilirubin,Unconjugated 0.6 mg/dL (0.0-1.1); Blood Urea Nitrogen 25 mg/dl (9-20); Calcium 9.7 mg/dl (8.4-10.2); Carbon Dioxide 25 mmol/L (22.0-30.0); Chloride 104 mmol/L (98-107); Cholesterol 212 mg/dl (140-200); Creatinine,Serum 1.10 mg/dl (0.66-1.25); Estimated Glomerular Filt Rate 67 ml/min (>60); GFR (African American) 81 ML/MIN (>60); Glucose 101 mg/dl (74-100); HDL Cholesterol 38 mg/dl (40-60); Potassium 4.0 mmoL/L (3.5-5.1); Sodium 135 mmol/L (136-145); Total Protein,Serum 7.2 g/dl (6.3-8.2); Triglycerides 202 mg/dl (30-150)
== END 2025-07-12 23:59 | disposition home or self-care (01) ==
LOC: LAB 10:48
PROVIDERS: PCP Internal Medicine; Visit Provider Internal Medicine
DX: E78.5 Hyperlipidemia, unspecified (principal); I25.10 Atherosclerotic heart disease of native coronary artery without angina pectoris
CPT/HCPCS: 36415; 80048; 80061; 80076; 85025